=== PATIENT | male | born 1935 | race Caucasian/White ===

== ENCOUNTER 2016-09-08 07:39 | Day surgery (SDC) | payer MEDICARE ==
[~2016-09-08] VITALS: Ht 167.6 cm; Wt 83.5 kg
[~2016-09-08 07:39] MED LIST: BISA-67 PO; BUPR-97 PO; CHOL100043 PO; LAC10 PO; LISI-567 PO; MAGN100T6 PO; METO50TA7 PO; NORT10CA PO; OMEG500C PO; OMEP20TA24 PO; POLY17PO6 PO; SENN17.24 PO; Sodium Chloride LOK Flush 10 mL Syringe IV PRN; WHEA98PO PO; fentaNYL-PF 50 mCg/mL 2 mL Inj IVPUSH PRN
[2016-09-08 07:52] VITALS: BP 158/77; PULSE 74; RESP 16; O2SAT 100
[2016-09-08] MEDS: 0.9% Sodium Chloride 1,000 ML IV SCH ×2 (08:01→09:09)
[2016-09-08 09:21] VITALS: BP 135/65; PULSE 64; RESP 13; O2SAT 98
[2016-09-08 09:33] VITALS: BP 135/65; PULSE 67; RESP 13; O2SAT 98
[2016-09-08 09:41] VITALS: BP 131/74; PULSE 63; RESP 15; O2SAT 99
--- NOTE | 2016-09-08 10:25 | ENDO ---
[address] [address] ENDOSCOPY PROCEDURE PATIENT: CHAN TORRES : 1935 MR#: [id number] ADMIT: 09/08/2016 JOB ID: [id number] PROCEDURE: Esophagogastroduodenoscopy. INDICATION: History of Perez's esophagus. ASA CLASSIFICATION: 2. MALLAMPATI SCORE: 2. MEDICATIONS: Versed 5 mg, fentanyl 100 mcg. INSTRUMENT USED: GIF-H180-J. PROCEDURE DETAILS: After informed consent was obtained, the patient was brought into the GI suite, where he was placed on oxygen via nasal cannula and monitored with continuous pulse oximeter, telemetry, and blood pressure monitoring. A time-out was performed. Then, he was placed in a left lateral decubitus position and medications were administered for sedation. A bite block was placed. The standard EGD scope was then inserted through the bite block and advanced under direct visualization to the second portion of the duodenum without difficulty. FINDINGS: 1. In the proximal portion of the second portion of the duodenum, there was a thickened fold. The mucosa had an adenomatous appearance. Multiple biopsies were obtained. 2. Normal-appearing pylorus, antrum and gastric body. 3. Retroflexed views in the gastric body revealed a hiatal hernia but otherwise normal-appearing cardia and fundus. 4. The diaphragmatic hiatus was at approximately 38 cm and the top of the gastric folds were at approximately 36 cm. Arising from the squamocolumnar junction were two tongues of salmon-colored mucosa extending up to 30 cm. Biopsies were obtained at 35 cm, 33 cm and at 31 cm. The remainder of the esophagus otherwise appeared unremarkable. IMPRESSION: 1. C1M5 suspected Perez's. 2. Thickened duodenal fold and second portion. 3. Hiatal hernia. RECOMMENDATIONS: 1. Continue PPI. 2. Reflux precautions. 3. Proceed to colonoscopy.
--- NOTE | 2016-09-08 10:29 | ENDO ---
[address] [address] ENDOSCOPY PROCEDURE PATIENT: CHAN TORRES : 1935 MR#: [id number] ADMIT: 09/08/2016 JOB ID: [id number] PROCEDURE PERFORMED: Colonoscopy. INDICATION: Chronic constipation. Please see above for ASA classification, Mallampati score, medications. INSTRUMENT USED: PCF-H180-AL. PREPARATION QUALITY: Fair. PROCEDURE DETAILS: After completion of the EGD exam, the patient was turned and then a digital rectal exam was performed, which was unremarkable. The colonoscope was then inserted into the rectum and advanced under direct visualization to the cecum, which was identified by the presence of the ileocecal valve and appendiceal orifice. Once the cecum was reached, the colonoscope was withdrawn back into the rectum as the mucosa and lumen were examined. In the rectum, retroflexion was performed. Following retroflexion, remaining air in the rectum was suctioned, and procedure was completed. FINDINGS: In the ascending colon, there was an approximately 4-5 mm sessile polyp that was removed with a cold snare. The remainder of the colon exam was otherwise unremarkable. IMPRESSION: Ascending colon polyp. RECOMMENDATIONS: Repeat colonoscopy as needed. COMPLICATIONS: None. ESTIMATED BLOOD LOSS: Less than 5 mL.
--- NOTE | 2016-09-09 10:38 | PATH ---
SURGICAL PATHOLOGY Attending Physician:Louisa Martin CASE STATUS: Signed Out PATIENT NAME: CHAN TORRES PID: [id number] : 1935 DATE COLLECTED:09/08/2016 21:17 SPECIMEN: 1: Esophagus, Biopsy 2: Duodenum, Biopsy 3: Esophagus, Biopsy 4: Esophagus, Biopsy 5: Colon, Biopsy CLINICAL HISTORY: 1). ESOPHAGUS - 35 CM 2). DUODENAL FOLD 2ND PORTION OF DUODENUM 3). ESOPHAGUS - 33 CM 4). ESOPHAGUS - 31 CM 5). ASCENDING COLON POLYP FINAL DIAGNOSIS: 1.ESOPHAGUS BIOPSY AT 35 CM: SQUAMOUS MUCOSA AND GASTRIC CARDIA-TYPE MUCOSA WITH FOCAL MUCOSAL SCARRING CONSISTENT WITH PREVIOUS MUCOSAL INJURY. Negative for specialized metaplasia of Diego' s-type esophagus. Negative for dysplasia and malignancy. Negative for squamous intraepithelial eosinophils. 2.DUODENAL FOLD, SECOND PORTION OF DUODENUM, BIOPSY: TUBULAR ADENOMA. 3.ESOPHAGUS BIOPSY AT 33 CM: SQUAMOUS MUCOSA AND GASTRIC CARDIA-TYPE MUCOSA POSITIVE FOR SPECIALIZED METAPLASIA OF DIEGO' S-TYPE ESOPHAGUS. Negative for dysplasia and malignancy. Negative for squamous intraepithelial eosinophils. 4.ESOPHAGUS BIOPSY AT 31 CM: SQUAMOUS MUCOSA AND GASTRIC CARDIA-TYPE MUCOSA POSITIVE FOR SPECIALIZED METAPLASIA OF DIEGO' S-TYPE ESOPHAGUS. Negative for dysplasia and malignancy. Negative for squamous intraepithelial eosinophils. 5.ASCENDING COLON POLYP: TUBULAR ADENOMA. ICD10 K22.7 NOTE: The material from part [address] Levon Reynolds, who agrees with the diagnosis. GROSS DESCRIPTION: The specimen is received in five formalin filled containers labeled with the patient's name. 1). The specimen is sublabeled "esophagus 35 CM" and consists of 2 tiny portions of tissue which aggregate to 0.3 x 0.3 x 0.2 CM. The specimen is entirely submitted in cassette 1A. 2). The specimen is sublabeled " DUODENAL FOLD 2ND PORTION OF DUODENUM" and consists of 2 portions of tissue which aggregate to 0.3 x 0.3 x 0.2 CM. The specimen is entirely submitted in cassette 2A. 3). The specimen is sublabeled "esophagus 33 CM" and consists of 3 portions of tissue which aggregate to 0.3 x 0.3 x 0.2 CM. The specimen is entirely submitted in cassette 3A. 4). The specimen is sublabeled "esophagus at 31" and consists of 2 portions of tissue which aggregate to 0.3 x 0.2 x 0.2 CM. The specimen is entirely submitted in cassette 4A. 5). The specimen is sublabeled "ascending colon polyp" and consists of a 0.3 x 0.2 x 0.2 CM portion of tissue which is entirely submitted in cassette 5A. 09/08/2016 DAC MICRO DESCRIPTION: See diagnosis. ICD-9 CODES: CPT CODES: 1: 03663 2: 86391 3: 48722 4: 44267 5: 61018 Electronically Signed Out Nakul Fields MD [facility] [address], [place] [address] Technical component performed at [facility], [address], [place], [address]
== END 2016-09-08 23:59 | disposition home or self-care (01) ==
LOC: END 07:39
PROVIDERS: ATTEND Internal Medicine Gastroenterology
DX: D12.2 Benign neoplasm of ascending colon (principal); K59.04 Chronic idiopathic constipation; D13.2 Benign neoplasm of duodenum; K22.70 Barrett's esophagus without dysplasia; K44.9 Diaphragmatic hernia without obstruction or gangrene; I10 Essential (primary) hypertension
CPT/HCPCS: 43239; 45385; 99153; G0500; J2250; J3010; J7030

== ENCOUNTER 2016-10-16 07:29 | Day surgery (SDC) | payer MEDICARE ==
[~2016-10-16] VITALS: Ht 167.6 cm; Wt 83.0 kg
[~2016-10-16 07:29] MED LIST changes: +Lactated Ringer's 1,000 ML IV ONE; +ROSU5TAB9 PO; -Sodium Chloride LOK Flush 10 mL Syringe IV PRN; -fentaNYL-PF 50 mCg/mL 2 mL Inj IVPUSH PRN
[2016-10-16] MEDS ORDERED: Propofol 10,000 mCg/mL 20 mL Inj ONE (07:30)
[2016-10-16] MEDS ORDERED: EPHEDrine/NS 5 mg/mL 5 mL Syringe ONE (07:30)
[2016-10-16 07:42] VITALS: BP 151/76; PULSE 58; O2SAT 98
--- NOTE | 2016-10-16 08:46 | PCM.HPANE ---
Patient Data Date of Service: Oct 16, 2016 Surgeon Admitting Provider: Attending Provider:Patricio Jason MD Primary Care Physician:Bernardo Miranda MD Other Provider: Reason for Visit Tubular Adenoma Ht/WT & BMI Height (Feet): 5 Height (Inches): 6 Weight (Kilograms): 83.01 Body Mass Index 29.00 Allergies Coded Allergies: No Known Allergies (Verified , 10/15/16) Past Anesthesia History Anesthesia History: Denies:: Abnormal Airway, Anesthesia Reactions, Difficult Intubation, Fam Anesthesia Reaction, Fam Malignant Hypertherm, Malignant Hyperthermia Diabetes History Hx Diabetes?: No MRSA MRSA: No Medications Home Meds Incl Beta Booker: Yes Date Beta Booker Taken: Oct 15, 2016 Time Beta Booker Taken: 0500 Reported Medications Rosuvastatin Calcium 5 Mg Tablet5 Mg PO HS 10/15/16 Polyethylene Glycol 3350 (Miralax)17 Gm Powd.pack17 Gm PO 09/05/16 Wheat Dextrin (Benefiber)1 Each Powd.pack1 Each PO DAILY 01/08/16 Bisacodyl (Dulcolax)5 Mg Tablet.dr5 Mg PO BID PRN For Constipation Ref 0 01/08/16 Omeprazole Magnesium (Prilosec Otc)20 Mg Tablet.dr40 Mg PO DAILY #1 PKG Ref 0 01/03/16 Bupropion ER (Wellbutrin XL)150 Mg Tab.er.34k656 Mg PO DAILY #30 TABLET Ref 0 09/08/14 Cholecalciferol (Vitamin D3) (Vitamin D)1,000 Unit Tablet2,000 Unit PO DAILY #1 BOTTLE Ref 0 09/08/14 Metoprolol Succinate ER (Toprol XL)50 Mg Tab.er.24h50 Mg PO DAILY 30 Days Ref 0 09/08/14 Nortriptyline 10 Mg Lxqbgls73 Mg PO HS 30 Days 09/08/14 Lisinopril 20 Mg Vncdlj54 Mg PO DAILY 30 Days Ref 0 09/08/14 Discontinued Reported Medications Lactulose 10 Gm/15 Ml Sllaaxst84 Gm PO 09/05/16 Magnesium Citrate 100 Mg Nxjnyd553 Mg PO Q 3RD DAY 01/08/16 Sennosides (Senokotxtra)17.2 Mg Cthtkq88.2 Mg PO HS 01/08/16 [place]-3 Fatty Acids (Fish Oil)500 Mg Capsule.dr1,000 Mg PO DAILY 09/08/14 History History of ENT Problems?: No HEENT History: Positive for:: Cataracts (S/P EXTRACTION) Denies:: Abnormal Airway Difficult Intubation Dysphagia Hearing Problem Sinus Problem Denture Type: Full- Upper Full- Lower Teeth Condition: Tooth Decay Missing Teeth Hx of Heart Problems?: Yes Cardiovascular History: Positive for:: Hypertension Denies:: AICD Atrial Fibrillation Cardiac Surgery Chest Pain Congestive Heart Failure Heart Murmur Irregular Heartbeat Pacemaker Thrombophlebitis Valvular Heart Disease Hx of Respiratory Problem?: No Respiratory History: Denies:: Asthma COPD Cough Emphysema Hemoptysis Oxygen Administration Pulmonary Embolism Tuberculosis Use of C-PAP Machine Hx Neurologic Problems?: Yes Neurological History: Positive for:: Headaches Denies:: CVA Dementia Dizziness Multiple Sclerosis Parkinson's Disease Seizures Hx of GI Problems?: Yes Gastrointestinal History: Positive for:: Gastroesphageal Reflux Hiatal Hernia Hx of Problems?: No Genitourinary History: Positive for:: Urinary Tract Infection (HX OF) Denies:: HX of Hemodialysis Kidney Stones HX of Peritoneal Dialysis: No Male Hx: Positive for:: Prostate Problems (BPH) Denies:: Scrotal Mass Testicular Surgery Skin History: Denies:: History Skin Disorders? Pressure Ulcers Hx Musculoskeletal Problems?: No Musculoskeletal History: Denies:: Back Injury Joint Replacement Hx of Psycho/Social Problems?: Yes Psycho Social History: Positive for:: Anxiety Hx Depression (WELLBUTRIN FOR CONTROL) Hx Surgeries?: Yes (HERNIA, BALDDER, PROSTATE) Hx Any Other Health Problems?: Yes Other History: Positive for:: Cancer (BLADDER) Denies:: Endocrine Disease Hospitalization Thyroid Disease History Blood Transfusions: Denies:: Blood Transfusions Hx Diabetes: No Hx Alcohol Use: No (YEARS AGO)Hx Substance Use: No Smoking Status: Never Smoker Have You Smoked inLast 12 mo: No Stop/Bang Treated for Sleep Apnea?: No Do You Have a CPAP Machine?: No S-Snoring: Do You Snore Loudly: No T-Tired: feel tired, fatigued: Yes O-Obsered: Observed not breath: No P-Blood Pressure: treated: Yes B- Body Mass Index > 35 kg/m2: Yes A- Age over 50: Yes N- Neck Large Circumference: Yes G- Gender Male: Yes JAYLEEN Total Score: 6 JAYLEEN Risk Assessment: High Risk, =/>3 Yes JAYLEEN Category 2: Yes Risk Assessment Category Category 1A: Patient has history of documented sleep apnea, and HAS NOT received any narcotic, sedative or anesthesia administration during this stay. Category 1B: Patient has history of documented sleep apnea, and HAS received any narcotic , sedative or anesthesia administration during this stay Category 2: Patient has SUSPECTED Obstructive Sleep Apnea, and HAS received any narcotic , sedative or anesthesia administration during this stay. Category 3: Patient has SUSPECTED Obstructive Sleep Apnea and HAS NOT received narcotic, sedative or anesthesia administration during this stay. Category 4: Outpatient in Procedural Areas with known sleep apnea or who screen positive for High Risk via the STOP/BANG questionnaire. Exam Exam Vital Signs Vital Signs Date Time Temp Pulse Resp B/P Pulse Ox O2 Delivery O2 Flow Rate FiO2 10/16/16 07:42 36.4 58 151/76 98 Room Air General Appearance: Alert, Oriented X3 HEENT/AIRWAY: MP 2 Lungs: Clear to Auscultation Heart: Exam Unremarkable Meds/Labs/Diagnostics Admission Meds Current Medications Lactated Ringer's (Lr) 1,000 ml @ 10 mls/hr Q24H ONCE IV Last administered on 10/16/16t 08:35; Start 10/16/16 at 06:00; Stop 10/17/16 at 05:59 Plan Impression Patient chart reviewed, patient interviewed and anesthestic plan with risks, benefits, and alternatives discussed, and informed consent obtained. ASA Physical Status: ASA2 Mod Systemic Disease Anesthetic Plan: MAC Bene/Risks/Altern/Consents: Yes HP Complete Prior to Induction: Yes Francis Gonzalez MD Oct 16, 2016 08:46
[2016-10-16 09:56] VITALS: BP 128/64; PULSE 64; RESP 16; O2SAT 100
[2016-10-16 10:06] VITALS: BP 128/64; PULSE 64; RESP 16; O2SAT 100
[2016-10-16 10:16] VITALS: BP 128/66; PULSE 68; RESP 16; O2SAT 95
--- NOTE | 2016-10-16 10:17 | ENDO ---
[address] [address] ENDOSCOPY PROCEDURE PATIENT: CHAN TORRES : 1935 MR#: [id number] ADMIT: 10/16/2016 JOB ID: [id number] DATE: 10/16/2016 PROCEDURE: Enteroscopy. INDICATION: The patient with a history of a duodenal adenoma. The patient's ASA classification, Mallampati score and medications as per anesthesia note. INSTRUMENT USED: PCF H 180 AL. PROCEDURE DETAILS: 1. After informed consent was obtained, the patient was brought into the GI suite, where he was placed on oxygen via nasal cannula and monitored with continuous pulse oximeter, telemetry and blood pressure monitoring. A time-out was performed. Then, he was placed in the left lateral decubitus position and medications were administered for sedation. A bite block was placed. The standard pediatric colonoscope was inserted through the bite block and advanced under visualization to the proximal jejunum. Once the proximal jejunum was reached, we were at the end of our scope and, therefore, I was not able to advance the scope any further. At this point, the scope was slowly withdrawn. The mucosa was examined as the endoscope was withdrawn. In the second portion of the duodenum, there was a flat polyp that measured approximately 8 mm. Multiple biopsies were obtained. 2. Rita ink was injected just distal to the polyp for future identification. The pediatric colonoscope was then withdrawn back into the stomach. Retroflexion was performed in the stomach which was unremarkable. [place] colored mucosa was seen arising from GEJ consistent with patient's known history of Perez's. The pediatric colonoscope was then withdrawn. IMPRESSION: Flat duodenal polyp. Perez's esophagus RECOMMENDATIONS: Await biopsy results. Pending biopsy results, we may need to consider repeat EGD with APC of the lesion if polyp pathology reveals duodenal adenoma. COMPLICATIONS: None. ESTIMATED BLOOD LOSS: Less than 5 mL. MTDD
--- NOTE | 2016-10-21 13:19 | PATH ---
SURGICAL PATHOLOGY Attending Physician:Louisa Martin CASE STATUS: Signed Out PATIENT NAME: CHAN TORRES PID: [id number] : 1935 DATE COLLECTED:10/16/2016 15:47 SPECIMEN: Duodenum, Biopsy CLINICAL HISTORY: 1). DUODENAL POLYP BIOPSY AT 80 CM FINAL DIAGNOSIS: 1. DUODENAL POLYP AT 80 CM, BIOPSY: DUODENAL MUCOSA WITH LOW-GRADE DYSPLASIA/ADENOMA IN 2 OF 2 FRAGMENTS. DEEPER LEVELS EXAMINED. SEE COMMENT. ICD10: K31.7 NOTE: As part of a routine air quality technician, Dr. Yifan Horner has also reviewed this case and agrees with the above interpretation. GROSS DESCRIPTION: The specimen is received in one formalin filled container labeled with the patient's name, labeled "80 CM" and consists of 2 portions of tissue which aggregate to 0.3 x 0.3 x 0.3 CM. The specimen is entirely submitted in one cassette. 10/16/2016DC MICRO DESCRIPTION: See diagnosis. ICD-9 CODES: CPT CODES: 1: 98727 Electronically Signed Out Audi Artis MD [facility] [address], [place] [address] Technical component performed at [facility], [facility] [address], [place], [address]
== END 2016-10-16 23:59 | disposition home or self-care (01) ==
LOC: END 07:29
PROVIDERS: ATTEND Internal Medicine Gastroenterology
DX: K31.7 Polyp of stomach and duodenum (principal); K22.70 Barrett's esophagus without dysplasia; K21.9 Gastro-esophageal reflux disease without esophagitis; I10 Essential (primary) hypertension; N40.0 Benign prostatic hyperplasia without lower urinary tract symptoms; N32.0 Bladder-neck obstruction; Z85.46 Personal history of malignant neoplasm of prostate
CPT/HCPCS: 43236; 44377; J7120

== ENCOUNTER → 2017-01-02 | Day surgery (SDC) | payer MEDICARE ==
[~2017-01-02] VITALS: Ht 167.6 cm; Wt 82.0 kg
[~2017-01-02] MED LIST changes: +0.9% Sodium Chloride 1,000 ML IV ONE; +0.9% Sodium Chloride 1,000 ML IV PRN; -LAC10 PO; -Lactated Ringer's 1,000 ML IV ONE; -MAGN100T6 PO; -NORT10CA PO; -OMEG500C PO; -SENN17.24 PO; +Sodium Chloride LOK Flush 10 mL Syringe IV PRN; +fentaNYL-PF 50 mCg/mL 2 mL Inj IVPUSH PRN
[2017-01-02 10:38] VITALS: BP 154/87; PULSE 60; RESP 16; O2SAT 99
[2017-01-02 11:40] VITALS: BP 113/65; PULSE 58; RESP 16; O2SAT 97
[2017-01-02 11:51] VITALS: PULSE 54; RESP 16; O2SAT 99
[2017-01-02 11:52] VITALS: BP 119/63; O2SAT 97
--- NOTE | 2017-01-02 16:48 | ENDO ---
[address] [address] ENDOSCOPY PROCEDURE PATIENT: CHAN TORRES : 1935 MR#: [id number] ADMIT: 01/02/2017 JOB ID: [id number] PROCEDURE: Esophagogastroduodenoscopy. INDICATION: Patient with a known duodenal adenoma. Patient's ASA classification is II. Mallampati score is II. MEDICATIONS: Please see nurse's notes for details regarding dosage of Versed and fentanyl. INSTRUMENT USED: GIF-H180J. PROCEDURE DETAILS: After informed consent was obtained, the patient was brought into the GI suite, where he was placed on oxygen via nasal cannula and monitored with continuous pulse oximeter, telemetry, and blood pressure monitoring. A time-out was performed. Then, he was placed in a left lateral decubitus position and medications were administered for sedation. The standard EGD scope was inserted through the bite block and advanced without difficulty to the second portion of the duodenum. FINDINGS: 1. In the proximal portion of the second part of the duodenum, there was an approximately 8 mm flat polyp that had previously been biopsied. Pathology was consistent adenoma. This polyp, which was flat, was on a fold. Using jumbo biopsy forceps, the polyp was removed by cold biopsy forceps. The remainder of the duodenal exam was otherwise unremarkable. 2. Normal-appearing pylorus, antrum, and gastric body. 3. Retroflexed views in the gastric body revealed a normal-appearing cardia and fundus. 4. Arising from the GE junction, there were several large tongues of salmon-colored mucosa which had recently been biopsied and was consistent with nondysplastic Perez's. No biopsies were performed today. Remainder of the esophagus appeared otherwise unremarkable. IMPRESSION: 1. Duodenal adenoma. 2. Perez's esophagus. RECOMMENDATIONS: 1. Follow up in GI clinic in 2-4 weeks. 2. Repeat endoscopy in six months. COMPLICATIONS: None. ESTIMATED BLOOD LOSS: Less than 5 mL.
--- NOTE | 2017-01-07 12:47 | PATH ---
SURGICAL PATHOLOGY Attending Physician:Louisa Martin CASE STATUS: Signed Out PATIENT NAME: CHAN TORRES PID: [id number] : 1935 DATE COLLECTED:01/02/2017 20:42 SPECIMEN: Duodenum, Biopsy CLINICAL HISTORY: 1). DUODENAL POLYP FINAL DIAGNOSIS: Duodenal Polyp, Biopsy: Duodenal mucosa with low-grade dysplasia/adenoma in six of eight biopsy fragments. Negative for high-grade dysplasia and invasive malignancy. ICD10: K31.7 GROSS DESCRIPTION: The specimen is received in one formalin filled container labeled with the patient's name, sublabeled "duodenal polyp" and consists of multiple portions of tissue which aggregate to 0.4 x 2.4 x 0.2 CM. The specimen is entirely submitted in one cassette. 01/02/2017DC ICD-9 CODES: CPT CODES: 1: 15662 Electronically Signed Out Haris Denney MD, PhD [facility], [place] [address] Technical component performed at [facility], [address] [place] [address] Ave[address], [place], [address]
== END | disposition home or self-care (01) ==
LOC: END 00:41
PROVIDERS: ATTEND Internal Medicine Gastroenterology
DX: D13.2 Benign neoplasm of duodenum (principal); K22.70 Barrett's esophagus without dysplasia; K21.9 Gastro-esophageal reflux disease without esophagitis; I10 Essential (primary) hypertension
CPT/HCPCS: 43239; 99153; G0500; J2250; J3010; J7030